=== PATIENT | male | born 1990 ===

== ENCOUNTER → 2020-08-05 | Outpatient (REF) | payer OTHER ==
[2020-08-05 10:11] LABS: SEMEN APPEARANCE OPAQUE (OPAQUE); SEMEN VISCOSITY LIQUID (LIQUID); WBC CONCENTRATION <=1 M/ml (<=1 M/ml)
[2020-08-05 10:12] LABS: SPERM CONCENTRATION 62.4 M/ml (>=15.0)
== END ==
LOC: M LAB REF 09:46
PROVIDERS: ATTEND Emergency Medicine
DX: Z98.52 Vasectomy status (principal)